=== PATIENT | female | born 1975 | race Caucasian/White ===

== ENCOUNTER 2023-12-17 11:38 | Emergency (ER) | payer OTHER ==
[2023-12-17] MEDS: Diphtheria,Pertussis(Acell),Tetanus Vaccine 0.5 ML Syringe IM ONE (12:02)
[2023-12-17] MEDS: Lidocaine 1% 20 ML MDV ONE (12:11)
[2023-12-17] MEDS: Lidocaine 1% 20 ML MDV INJECT ONE (12:11)
[2023-12-17] MEDS: Bacitracin/Neomycin/Polymyxin B Oint 0.9 GM U/D Packet TOP ONE (12:37)
[2023-12-17] MEDS: Bacitracin/Neomycin/Polymyxin B Oint 0.9 GM U/D Packet ONE (12:37)
== END 2023-12-17 12:50 | disposition home or self-care (01) ==
LOC: KA.ED 11:38
DX: S61.317A Laceration without foreign body of left little finger with damage to nail, initial encounter (principal); Z23 Encounter for immunization; W26.8XXA Contact with other sharp object(s), not elsewhere classified, initial encounter
CPT/HCPCS: 12001; 90471; 90715; 99282-25; J3490